=== PATIENT | male | born 2000 | race Caucasian/White ===

== ENCOUNTER 2020-04-05 15:30 | Outpatient (CLI) | payer BC, OTHER, SELFPAY ==
--- NOTE | ~2020-04-05 | XR_ITS ---
EXAMINATION: XR abdomen/kub 1V EXAM DATE: 04/05/2020 15:52 INDICATION: Hematuria, left-sided abdominal pain. States passed kidney stone. TECHNIQUE: Frontal projection of the upper abdomen, frontal projection lower abdomen/pelvis for inter pretation. There is no prior study for comparison. FINDINGS: There is expected amount of colonic stool and gas. No small bowel dilation, nonobstructiv e bowel gas pattern. There are no suspicious calcifications identified. There is no organomegaly suspected. The bones are unremarkable. IMPRESSION: Unremarkable abdomen x-ray exam. Reviewed, dictated and finalized at location A.
== END 2020-04-05 15:31 | disposition home or self-care (01) ==
LOC: ANHIMG 15:34
PROVIDERS: PCP Family Medicine; Visit Provider Nurse Practitioner Family
DX: R31.9 Hematuria, unspecified (principal); R10.9 Unspecified abdominal pain
CPT/HCPCS: 74018

== ENCOUNTER 2022-11-19 08:03 | Outpatient (CLI) | payer BC, OTHER, SELFPAY ==
--- NOTE | 2022-12-13 18:59 | WPDSLEEPSTUD ---
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 He is tired even after full night of sleep. His father, aunt, and grandmother all have difficulties waking up in the morning. He rarely awakens from sleep feeling short of breath. He rarely awakens at night with heartburn, belching or coughing. He always snores loudly enough that others complain about it. He occasionally has trouble sleeping with a cold. He occasionally gasps for breath at night and has breathing problems at night observed by others. He occasionally sweats excessively at night. Does not notice his heart pounding or beating irregularly night. Rarely falls asleep during the day. He does not fall asleep involuntarily or while driving. Does not have loss of muscle tone with strong emotion. He does not have daytime difficulties due to excessive sleepiness. He denies feeling paralyzed on waking or falling asleep. He denies vivid dreamlike scenes on a waking or falling asleep. Does not feel afraid to go to sleep. He rarely has nightmares. He rarely remembers his dreams. He occasionally has racing thoughts. He does not feel sad or depressed. Occasionally has anxiety. He rarely has muscular tension. Does not notice parts of his body jerking and he does not kick at night. He does not have crawling or aching feelings in his legs. He does not have any kind of leg pain at night. Denies morning jaw pain. He does not grind his teeth during sleep. He is not bothered by pain during the day or awakened by pain at night. He rarely wakes up feeling stiff in the morning. Does not wake up with sore achy muscles or pain in the neck and spine. Normal bedtime is 12:30 a.m. falling asleep within 10 minutes waking twice at night to use the bathroom. He is able to return to sleep quickly. He wakes the morning at 8:30 a.m.. His schedule is the same on weekends. He estimates getting about 8 hours of sleep at night. He does not take naps in the afternoon or evening. A short nap is not refreshing. He is usually drowsy for an hour after waking. He feels better in the afternoon compared to other times a day. He reports a 20 lb weight gain in the last year. Habits: Never smoked tobacco. Caffeine 2 sodas per day. Alcohol 2 beers per day. No recreational substances. [facility] Past Medical History Medical History (Updated 12/14/22 @ 16:37 by Nata Mejia MD) BMI 50.0-59.9, adult Hypertension Morbid (severe) obesity due to excess calories Surgical History Surgical History H/O shoulder surgery Family History Family History Father Hyperlipidemia Hypertension Mother No problems noted. 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 Gender identity (if verbalized by the patient): Male Medications Home Medications Medic
[2022-12-14 16:21] VITALS: BMI 48.6
== END 2022-11-20 06:38 | disposition home or self-care (01) ==
LOC: ANHCSM 08:04
PROVIDERS: PCP Family Medicine; Visit Provider Family Medicine
DX: G47.33 Obstructive sleep apnea (adult) (pediatric) (principal); G47.10 Hypersomnia, unspecified; Z68.42 Body mass index [BMI] 45.0-49.9, adult
CPT/HCPCS: 95811